=== PATIENT | male | born 1960 | race Asian ===

== ENCOUNTER → 2024-08-25 | Outpatient (CLI) | payer MEDICAID, SELFPAY ==
--- NOTE | 2024-08-25 08:00 | XR_ITS ---
Examination: CT chest, without intravenous contrast. Sagittal and coronal 2-D reconstructions. Exam date and time: August 25, 2024 0746 hours INDICATIONS: Smoking history 40 years CTDI:vol (mGy) 11 DLP: (mGycm) 425 Technique: Multiple 3.0 mm axial sections of the chest to been obtained. Bone and lung density settings are obtained. Sagittal and coronal 2-D reconstructions have been obtained. Low dose protocols were performed. One or more of the following dose reduction techniques were used; automated exposure control, adjustment of the mA and/or KV according to patient size, use of iterative reconstruction technique. Findings: No thoracic aortic aneurysm dilatation. Pulmonary artery segments are not enlarged. No paratracheal tracheobronchial or bronchopulmonary adenopathy. No pneumonia, pulmonary edema, pleural disease or pulmonary nodules No visualized liver or splenic lesion Contracted gallbladder No pancreatic mass 15 mm indeterminate left adrenal nodule IMPRESSION: No mediastinal lymphadenopathy No pneumonia, pulmonary edema, pleural disease or pulmonary nodules 15 mm indeterminate left adrenal nodule, recommend MRI abdomen adrenal glands follow-up, pre and postcontrast, adrenal gland protocol to exclude early left renal tumor
== END | disposition home or self-care (01) ==
PROVIDERS: PCP Physician Assistant; Referring Provider Physician Assistant; Visit Provider Physician Assistant
DX: F17.210 Nicotine dependence, cigarettes, uncomplicated (principal)
CPT/HCPCS: 71271

== ENCOUNTER → 2024-11-05 | Outpatient (CLI) | payer MEDICAID, SELFPAY ==
--- NOTE | 2024-11-05 13:39 | XR_ITS ---
Examination: CT chest, without intravenous contrast. Sagittal and coronal 2-D reconstructions. Exam date and time: November 05, 2024 1346 hours Comparison August 25, 2024 INDICATIONS: History smoking, cardiac stent placement August 2024 CTDI:vol (mGy) 11.4 DLP: (mGycm) 373 Technique: Multiple 3.0 mm axial sections of the chest to been obtained. Bone and lung density settings are obtained. Sagittal and coronal 2-D reconstructions have been obtained. Low dose protocols were performed. One or more of the following dose reduction techniques were used; automated exposure control, adjustment of the mA and/or KV according to patient size, use of iterative reconstruction technique. Findings: No thoracic aortic aneurysm dilatation Pulmonary artery segments are not enlarged No paratracheal tracheobronchial or bronchopulmonary adenopathy No pneumonia, pulmonary edema pleural disease or pulmonary nodules No visualized liver or splenic lesion Contracted gallbladder, suspicious for tiny gallstones No pancreatic mass Moderate osteopenia IMPRESSION: No mediastinal lymphadenopathy No pneumonia, pulmonary edema, pleural disease or pulmonary mass lesions Recommend hepatobiliary sonography follow-up to exclude gallstones
== END | disposition home or self-care (01) ==
PROVIDERS: PCP Physician Assistant; Referring Provider Physician Assistant; Visit Provider Physician Assistant
DX: M85.80 Other specified disorders of bone density and structure, unspecified site (principal); F17.210 Nicotine dependence, cigarettes, uncomplicated
CPT/HCPCS: 71250

== ENCOUNTER → 2024-11-09 | Outpatient (CLI) | payer MEDICAID, SELFPAY ==
--- NOTE | 2024-11-09 13:30 | XR_ITS ---
Examination: MRI abdomen with intravenous contrast. MRI abdomen without intravenous contrast. Date and time of exam: November 09, 2024 1404 hours INDICATIONS: CT chest November 05, 2024 15 mm indeterminate left adrenal nodule Technique: Multiple axial, sagittal and coronal sections of the abdomen obtained. Transverse images, TR 6020, TE 107. T1 weighted transverse images, TR 582, TE 9.5. T2-weighted sagittal images, TR 4000, TE 105. T2-weighted sagittal images, TR 4000, TE 5. Coronal images, TR 4210, TE 107. Axial and coronal images are obtained post 20 cc intravenous injection, gadolinium. Findings: No focal liver lesions or biliary tract dilatation Normal gallbladder Normal common hepatic common bile duct Spleen not enlarged 12 mm left adrenal nodule, this nodule does not show significant enhancement on the post contrast images No ascites Aorta normal size No lymphadenopathy in the abdomen IMPRESSION: Probably benign left adrenal nodule, adenoma Recommend CT scan six-month abdomen without contrast follow-up
== END | disposition home or self-care (01) ==
LOC: SMRI 13:26
PROVIDERS: PCP Physician Assistant; Referring Provider Physician Assistant; Visit Provider Physician Assistant
DX: D35.00 Benign neoplasm of unspecified adrenal gland (principal)
CPT/HCPCS: 74183; A9579